=== PATIENT | female | born 1935 | race Caucasian/White ===

== ENCOUNTER → 2017-02-27 | Outpatient (CLI) | payer OTHER ==
[~2017-02-27] MED LIST: ADULT LOW DOSE81 M1 PO; ADVAIR; ADVAIR 250/501 DISK IH; ANORO ELLIPTA1 EACH IH; APLISOL5 TUB UNIT ID; ARICEPT10 MG PO; ASPIR 8181 M1 PO; ASPIRIN E.C.81 M1 PO; ATIVAN0.5 MG PO; ATIVAN2 MG PO; Aricept PO; Aspirin PO; Ativan PO; B-COMPLEX-VITA1 EACH PO; BACTRIM,SEPT1 TABLET PO; BACTROBAN OINTM22 GM TP; BONIVA150 MG PO; CALCARB 600 W-1 EACH PO; CALCIUM + D3 E1 EACH PO; CALCIUM 500 +1 EAC5 PO; CALCIUM CITRAT1 EA10 PO; CALCIUM CITRATE; CARBIDOPA; CARBIDOPA-LEVO1 EAC3 PO; CATAPRES0.3 MG PO; CEFTIN500 MG PO; CITRACAL PLUS1 EAC1 PO; CLEOCIN300 MG PO; CLINDAMYCIN HC300 MG PO; CLONIDINE HCL0.3 MG PO; COLACE100 MG PO; COUMADIN,JANTOVE1 MG PO; COUMADIN,JANTOVE4 MG PO; CRESTOR10 MG PO; CYMBALTA60 MG PO; Citracal PO; Cymbalta PO; DELTASONE1 MG PO; DITROPAN5 MG PO; DOCUSATE SODIU100 MG PO; DULCOLAX10 MG PR; ECOTRIN325 MG PO; ENDOCET 5-3251 EACH PO; ENEMA133 M2 PR; Ecotrin PO; FEOSOL325 MG PO; FEROSUL325 MG PO; FOSAMAX70 M1 PO; FOSAMAX70 MG PO; Feosol PO; Fosamax PO; GABAPENTIN300 MG PO; GABAPENTIN600 MG PO; HI B COMPLEX1 EACH PO; HIBICLENS118 ML TP; HYDROCODON-ACE1 EAC7 PO; HYDROXYCHLOROQ200 MG PO; IRON; IRON325 M1 PO; IRON325 MG PO; KEFLEX500 MG PO; LASIX40 MG PO; LEVODOPA; LEVOTHYROXINE25 MCG PO; LITE COAT ASPI325 M1 PO; LORAZEPAM0.5 MG PO; MEDROL DOSEPAK4 MG PO; MELATIN3 MG PO; METHOTREXATE; METHOTREXATE2.5 M2 PO; METHOTREXATE2.5 MG PO; MILK OF MAGN PO; MIRALAX17 GM PO; MULTIVITAMIN1 EAC2 PO; MYSOLINE50 MG PO; Micro-K,K-Tab,K-Dur, PO; NEURONTIN300 MG PO; ONDANSETRON ODT4 MG PO; OXAYDO5 MG PO; OXYBUTYNIN CHLOR5 M1 PO; OXYCODONE HCL5 MG PO; OYSTER SHELL 51 EACH PO; Oyst-Cal D, Oscal W/ PO; PLAQUENIL200 MG PO; PREDNISONE1 M1 PO; PREDNISONE1 MG PO; PRILOSEC20 MG PO; PRILOSEC40 MG PO; PRIMIDONE50 MG PO; PROAIR HFA8.5 GM IH; PriLOSEC PO; Proair HFA IH; Proventil,Ventolin H IH; SENNA PLUS TAB1 EACH PO; SINEMET 25-1001 EACH PO; SINEMET 25-11 TABLET PO; SPIRIVA1 INHALATI IH; SYMBICORT60 INHALAT IH; SYNTHROID25 MCG PO; Sinemet 25-100 PO; Symbicort 160-4.5 mc IH; TAB-A-VITE1 EACH PO; THERAGRAN1 TABLET PO; TRAMADOL HCL50 MG PO; TYLENOL325 M1 PO; Theragran-M,Centrum, PO; Tylenol Regular Stre PO; ULTRAM50 MG PO; VITAMIN B-122000 MC1 PO; VITAMIN D3; Vitamin B Complex PO; ZANTAC150 MG PO; Zantac PO; Zithromax PO; [UNRECOGNIZED DRUG - OTHER] PO; [UNRECOGNIZED DRUG - OTHER] PO; predniSONE PO
[2017-02-27 09:27] LABS: HEMATOCRIT 44.3 % (36.0-46.0); MCH 29.2 PG (29.0-34.0); MCHC 31.2 G/DL (30.0-36.0); MCV 93.9 FL (83-99); MEAN PLAT.VOLUME 9.8 uM^3 (9.5-12.4); PLATELET COUNT 189 K/uL (156-360); RBC DIS.WIDTH-CV 13.2 % (11.8-14.6); RBC DIS.WIDTH-SD 45.5 % (39-53); RED BLOOD COUNT 4.72 M/uL (3.80-5.20); WHITE BLOOD COUNT 6.5 K/uL (4.1-10.2)
== END | disposition home or self-care (01) ==
LOC: OPR 08:48 → EDSTATUS 10:00
PROVIDERS: Internal Medicine Pulmonary Disease
DX: C34.90 Malignant neoplasm of unspecified part of unspecified bronchus or lung (principal); J44.9 Chronic obstructive pulmonary disease, unspecified; R07.9 Chest pain, unspecified
CPT/HCPCS: 71010; 77012; 85027; 85610; 85730; 87070; 87075; 87205; 88305; 88341 TC; 88342 TC; J1170

== ENCOUNTER 2017-04-16 03:14 | Emergency (ER) | payer OTHER ==
[~2017-04-16 03:14] MED LIST changes: -IRON325 MG PO
[2017-04-16 03:25] LABS: EOSINOPHIL (%) 1.8 % (0-5); EOSINOPHIL COUNT 0.1 K/uL (0-0.3); HEMATOCRIT 37.2 % (36.0-46.0); IMMATURE GRANULOCYTE (%) 0.6 % (0.0-0.7); INSTRUMENT ABS NEUTROPHIL CT 4.8 K/uL; LYMPHOCYTE COUNT 1.2 K/uL (1.0-2.8); MCH 29.3 PG (29.0-34.0); MCHC 31.7 G/DL (30.0-36.0); MCV 92.3 FL (83-99); MEAN PLAT.VOLUME 9.2 uM^3 (9.5-12.4); MONOCYTE (%) 7.7 % (3-12); MONOCYTE COUNT 0.5 K/uL (0-0.8); NEUTROPHIL (%) 72.1 % (45-76); NEUTROPHIL COUNT 4.8 K/uL (1.8-6.4); PLATELET COUNT 161 K/uL (156-360); RBC DIS.WIDTH-CV 13.2 % (11.8-14.6); RBC DIS.WIDTH-SD 44.9 % (39-53); RED BLOOD COUNT 4.03 M/uL (3.80-5.20); WHITE BLOOD COUNT 6.7 K/uL (4.1-10.2)
[2017-04-16 03:35] LABS: AMYLASE 36 IU/L (1-118); CHLORIDE 103 mEq/L (99-109); POTASSIUM 4.1 mEq/L (3.7-5.4); SODIUM 138 mEq/L (136-147)
[2017-04-16 03:37] LABS: GLUCOSE 100 mg/dL (70-99)
[2017-04-16 03:38] LABS: ANION GAP 9 MEQ/L (2-14)
[2017-04-16 03:40] LABS: SERUM ETHYL ALCOHOL < 10 mg/dL
[2017-04-16 03:41] LABS: GFR ESTIMATE (CALCULATED) 57 mL/min/
[2017-04-16 03:42] LABS: UREA NITROGEN (BUN) 15 mg/dL (9-23)
[2017-04-16 03:44] LABS: LIPASE 12 U/L (1.0-51.0)
[2017-04-16] MEDS ORDERED: KEFLEX500 MG PO ×2 (05:06→09:44)
[2017-04-17] MEDS ORDERED: HYDROCODON-ACE1 EAC7 PO (15:56)
[2017-04-17] MEDS ORDERED: COLACE100 MG PO (15:56)
== END 2017-04-16 06:11 | disposition home or self-care (01) ==
LOC: TRA 03:14
PROVIDERS: Emergency Medicine
DX: S01.01XA Laceration without foreign body of scalp, initial encounter (principal); S41.111A Laceration without foreign body of right upper arm, initial encounter; S40.011A Contusion of right shoulder, initial encounter; S70.11XA Contusion of right thigh, initial encounter; W19.XXXA Unspecified fall, initial encounter; Y92.002 Bathroom of unspecified non-institutional (private) residence as the place of occurrence of the external cause; Z23 Encounter for immunization; Z79.82 Long term (current) use of aspirin; Z79.52 Long term (current) use of systemic steroids
CPT/HCPCS: 70450; 72125; 73552; 80048; 81003; 82150; 83690; 85025; 86900; 86901; G0480

== ENCOUNTER 2017-04-17 11:15 | Day surgery (SDC) | payer OTHER ==
[~2017-04-17] VITALS: Ht 170.2 cm; Wt 79.0 kg
[2017-04-17 12:10] LABS: EOSINOPHIL COUNT 0.1 K/uL (0-0.3); HEMATOCRIT 37.7 % (36.0-46.0); IMMATURE GRANULOCYTE (%) 0.4 % (0.0-0.7); INSTRUMENT ABS NEUTROPHIL CT 5.8 K/uL; LYMPHOCYTE COUNT 0.6 K/uL (1.0-2.8); MCH 28.7 PG (29.0-34.0); MCHC 30.8 G/DL (30.0-36.0); MCV 93.3 FL (83-99); MEAN PLAT.VOLUME 9.9 uM^3 (9.5-12.4); MONOCYTE (%) 6.6 % (3-12); MONOCYTE COUNT 0.5 K/uL (0-0.8); NEUTROPHIL (%) 82.7 % (45-76); NEUTROPHIL COUNT 5.8 K/uL (1.8-6.4); PLATELET COUNT 161 K/uL (156-360); RBC DIS.WIDTH-CV 13.5 % (11.8-14.6); RBC DIS.WIDTH-SD 46.5 % (39-53); RED BLOOD COUNT 4.04 M/uL (3.80-5.20)
[2017-04-17 12:16] LABS: INTER. NORMALIZED RATIO 1.1
[2017-04-17 12:29] VITALS: BP 149/65
[2017-04-17 12:37] LABS: ALKALINE PHOSPHATASE 51 IU/L (3-129); ANION GAP 8 MEQ/L (2-14); CHLORIDE 103 MEQ/L (99-109); GFR ESTIMATE (CALCULATED) 57 mL/min/; GLUCOSE 97 mg/dL (70-99); POTASSIUM 4.4 MEQ/L (3.7-5.4); SAMPLE HEMOLYSIS CHECK 0; SAMPLE ICTERIC CHECK 0; SAMPLE LIPEMIA CHECK 0; SODIUM 140 MEQ/L (136-147); TOTAL BILIRUBIN 0.5 MG/DL (0.0-1.0); UREA NITROGEN (BUN) 16 mg/dL (9-23)
[2017-04-17] MEDS ORDERED: HYDROCODON-ACE1 EAC7 PO (15:56)
[2017-04-17] MEDS ORDERED: COLACE100 MG PO (15:56)
[2017-04-17 18:00] VITALS: BP 187/79
[2017-04-17 18:39] VITALS: BP 181/74
== END 2017-04-17 18:50 | disposition home or self-care (01) ==
LOC: SDC 11:15
PROVIDERS: Thoracic Surgery (Cardiothoracic Vascular Surgery)
PROC: 07B74ZX Excision of Thorax Lymphatic, Percutaneous Endoscopic Approach, Diagnostic (ICD-10-PCS; principal; 2017-04-17)
DX: C34.12 Malignant neoplasm of upper lobe, left bronchus or lung (principal); J44.9 Chronic obstructive pulmonary disease, unspecified; I73.9 Peripheral vascular disease, unspecified; E03.9 Hypothyroidism, unspecified; I10 Essential (primary) hypertension; I49.5 Sick sinus syndrome; Z79.82 Long term (current) use of aspirin; Z87.891 Personal history of nicotine dependence; Z86.73 Personal history of transient ischemic attack (TIA), and cerebral infarction without residual deficits; Z88.0 Allergy status to penicillin
CPT/HCPCS: 80053; 85025; 85610; 86850; 86900; 86901; 88305; J0360; J0690; J2405; J2710; J3010

== ENCOUNTER 2017-04-30 22:13 | Inpatient (IN) | payer OTHER ==
[~2017-04-30] VITALS: Ht 172.7 cm; Wt 83.1 kg
[2017-05-01] MEDS ORDERED: MEMANTINE HCL5 MG PO (10:12)
[2017-05-01 10:50] VITALS: BP 178/70
[2017-05-01 11:28] LABS: METH RESISTANT S AUREUS PCR POSITIVE (NEGATIVE)
[2017-05-01 11:35] LABS: PROBE CHECK PASS
[2017-05-01 20:00] VITALS: BP 112/59
[2017-05-01 20:47] LABS: METH RESISTANT S AUREUS PCR POSITIVE (NEGATIVE)
[2017-05-01 20:53] LABS: PROBE CHECK PASS
[2017-05-02] VITALS (13 sets, daily range): BP systolic 98–170; BP diastolic 52–88
[2017-05-02 07:52] LABS: HEMATOCRIT 29.3 % (36.0-46.0); MCH 29.2 PG (29.0-34.0); MEAN PLAT.VOLUME 9.8 uM^3 (9.5-12.4); PLATELET COUNT 145 K/uL (156-360); RBC DIS.WIDTH-CV 14.2 % (11.8-14.6); WHITE BLOOD COUNT 10.6 K/uL (4.1-10.2)
[2017-05-02 07:54] LABS: MCV 97.3 FL (83-99); RED BLOOD COUNT 3.01 M/uL (3.80-5.20)
[2017-05-02 08:09] LABS: ANION GAP 10 MEQ/L (2-14); CHLORIDE 107 MEQ/L (99-109); GFR ESTIMATE (CALCULATED) > 59 mL/min/; GLUCOSE 119 mg/dL (70-99); POTASSIUM 5.4 MEQ/L (3.7-5.4); SAMPLE HEMOLYSIS CHECK 0; SAMPLE ICTERIC CHECK 0; SAMPLE LIPEMIA CHECK 0; SODIUM 136 MEQ/L (136-147); UREA NITROGEN (BUN) 19 mg/dL (9-23)
[2017-05-02 10:52] LABS: POINT-OF-CARE METER ID UU13113803
[2017-05-02 12:24] LABS: TROP-I INTERPRETATION NEGATIVE
[2017-05-02 12:27] LABS: CK-MB 7.3 ng/mL (0.0-4.9)
[2017-05-02 13:07] LABS: CREATINE KINASE 658 IU/L (1-294); TOTAL CK 658 IU/L (1-294)
[2017-05-02 18:46] LABS: CREATINE KINASE 737 IU/L (1-294); TOTAL CK 737 IU/L (1-294)
[2017-05-02 18:51] LABS: TROP-I INTERPRETATION NEGATIVE; TROPONIN-I 0.11 ng/mL (0.0-0.30)
[2017-05-02 19:04] LABS: CK-MB 8.1 ng/mL (0.0-4.9)
[2017-05-03] VITALS (19 sets, daily range): BP systolic 103–178; BP diastolic 44–95
[2017-05-03 01:30] LABS: CREATINE KINASE 920 IU/L (1-294); TOTAL CK 920 IU/L (1-294)
[2017-05-03 01:33] LABS: TROP-I INTERPRETATION NEGATIVE
[2017-05-03 01:36] LABS: CK-MB 4.9 ng/mL (0.0-4.9)
[2017-05-03 07:39] LABS: HEMATOCRIT 26.8 % (36.0-46.0); MCHC 31.3 G/DL (30.0-36.0); MCV 95.7 FL (83-99); MEAN PLAT.VOLUME 9.7 uM^3 (9.5-12.4); PLATELET COUNT 140 K/uL (156-360); RBC DIS.WIDTH-SD 48.6 % (39-53); WHITE BLOOD COUNT 11.8 K/uL (4.1-10.2)
[2017-05-03 08:15] LABS: ANION GAP 8 MEQ/L (2-14); CHLORIDE 106 MEQ/L (99-109); GFR ESTIMATE (CALCULATED) 46 mL/min/; GLUCOSE 111 mg/dL (70-99); POTASSIUM 5.2 MEQ/L (3.7-5.4); SAMPLE HEMOLYSIS CHECK 0; SAMPLE ICTERIC CHECK 0; SAMPLE LIPEMIA CHECK 0; SODIUM 136 MEQ/L (136-147)
[2017-05-03 08:23] LABS: UREA NITROGEN (BUN) 32 mg/dL (9-23)
[2017-05-04] VITALS (17 sets, daily range): BP systolic 127–199; BP diastolic 47–94
[2017-05-04 05:35] LABS: HEMATOCRIT 25.8 % (36.0-46.0); MCH 28.8 PG (29.0-34.0); MCHC 30.2 G/DL (30.0-36.0); MCV 95.2 FL (83-99); MEAN PLAT.VOLUME 9.9 uM^3 (9.5-12.4); NRBC (%) 0.2 /100 WBC (0-0); PLATELET COUNT 133 K/uL (156-360); RBC DIS.WIDTH-CV 14.2 % (11.8-14.6); RBC DIS.WIDTH-SD 48.5 % (39-53); RED BLOOD COUNT 2.71 M/uL (3.80-5.20); WHITE BLOOD COUNT 8.1 K/uL (4.1-10.2)
[2017-05-04 06:18] LABS: ANION GAP 8 MEQ/L (2-14); CHLORIDE 105 MEQ/L (99-109); GFR ESTIMATE (CALCULATED) > 59 mL/min/; GLUCOSE 106 mg/dL (70-99); POTASSIUM 4.2 MEQ/L (3.7-5.4); SAMPLE HEMOLYSIS CHECK 0; SAMPLE ICTERIC CHECK 0; SAMPLE LIPEMIA CHECK 0; SODIUM 136 MEQ/L (136-147); UREA NITROGEN (BUN) 26 mg/dL (9-23)
[2017-05-05] VITALS (17 sets, daily range): BP systolic 89–173; BP diastolic 50–73
[2017-05-05 08:18] LABS: HEMATOCRIT 23.2 % (36.0-46.0); MCH 30.2 PG (29.0-34.0); MCHC 31.5 G/DL (30.0-36.0); MCV 95.9 FL (83-99); MEAN PLAT.VOLUME 9.7 uM^3 (9.5-12.4); PLATELET COUNT 152 K/uL (156-360); RBC DIS.WIDTH-CV 14.4 % (11.8-14.6); RBC DIS.WIDTH-SD 50.1 % (39-53); RED BLOOD COUNT 2.42 M/uL (3.80-5.20)
[2017-05-05 09:02] LABS: ANION GAP 5 MEQ/L (2-14); CHLORIDE 105 MEQ/L (99-109); GFR ESTIMATE (CALCULATED) > 59 mL/min/; GLUCOSE 90 mg/dL (70-99); POTASSIUM 4.3 MEQ/L (3.7-5.4); SAMPLE HEMOLYSIS CHECK 0; SAMPLE ICTERIC CHECK 0; SAMPLE LIPEMIA CHECK 0; SODIUM 139 MEQ/L (136-147); UREA NITROGEN (BUN) 21 mg/dL (9-23)
[2017-05-06] VITALS (12 sets, daily range): BP systolic 128–203; BP diastolic 58–97
[2017-05-06 05:34] LABS: EOSINOPHIL COUNT 0.1 K/uL (0-0.3); HEMATOCRIT 29.1 % (36.0-46.0); IMMATURE GRANULOCYTE (%) 1.1 % (0.0-0.7); IMMATURE GRANULOCYTE COUNT 0.1 K/uL; INSTRUMENT ABS NEUTROPHIL CT 8.7 K/uL; LYMPHOCYTE COUNT 1.1 K/uL (1.0-2.8); MCH 28.9 PG (29.0-34.0); MCHC 30.9 G/DL (30.0-36.0); MCV 93.6 FL (83-99); MEAN PLAT.VOLUME 9.4 uM^3 (9.5-12.4); MONOCYTE (%) 7.5 % (3-12); MONOCYTE COUNT 0.8 K/uL (0-0.8); NEUTROPHIL (%) 80.1 % (45-76); NEUTROPHIL COUNT 8.7 K/uL (1.8-6.4); PLATELET COUNT 189 K/uL (156-360); RBC DIS.WIDTH-CV 15.1 % (11.8-14.6); WHITE BLOOD COUNT 10.9 K/uL (4.1-10.2)
[2017-05-06 05:41] LABS: RED BLOOD COUNT 3.11 M/uL (3.80-5.20)
[2017-05-06 06:23] LABS: ANION GAP 6 MEQ/L (2-14); CHLORIDE 104 MEQ/L (99-109); GFR ESTIMATE (CALCULATED) > 59 mL/min/; GLUCOSE 98 mg/dL (70-99); POTASSIUM 4.6 MEQ/L (3.7-5.4); SAMPLE HEMOLYSIS CHECK 0; SAMPLE ICTERIC CHECK 0; SAMPLE LIPEMIA CHECK 0; SODIUM 139 MEQ/L (136-147); UREA NITROGEN (BUN) 28 mg/dL (9-23)
[2017-05-06 13:00] LABS: BASE EXCESS 4.4 mEq/L (-3 to +3); BICARBONATE 28.4 mEq/L (22-26); CARBOXY HGB 2.6 % (0-5); METHEMOGLOBIN 1.6 % (0-1.5); PO2 49 mm Hg (80-100); pH 7.47 (7.35-7.45)
[2017-05-06 13:01] LABS: COMMENTS - BLOOD GASES A+C+; DEVICE NC; O2 FLOW 2 L/MIN; PCO2 39 mm Hg (35-45); SITE RR; TOTAL RESP RATE 22 resp/min
[2017-05-06 15:31] LABS: TROP-I INTERPRETATION NEGATIVE; TROPONIN-I 0.03 ng/mL (0.0-0.30)
[2017-05-07] VITALS: BP 163/69
[2017-05-07 04:00] VITALS: BP 146/60
[2017-05-07 05:46] LABS: HEMATOCRIT 30.4 % (36.0-46.0); MCHC 31.6 G/DL (30.0-36.0); MCV 91.8 FL (83-99); MEAN PLAT.VOLUME 9.9 uM^3 (9.5-12.4); PLATELET COUNT 183 K/uL (156-360); RBC DIS.WIDTH-CV 14.7 % (11.8-14.6); RBC DIS.WIDTH-SD 49.3 % (39-53); RED BLOOD COUNT 3.31 M/uL (3.80-5.20); WHITE BLOOD COUNT 15.1 K/uL (4.1-10.2)
[2017-05-07 06:00] LABS: INTER. NORMALIZED RATIO 1.1; PROTHROMBIN TIME 11.9 SEC (10.2-12.9)
[2017-05-07 06:02] LABS: PTT 64.9 SEC (25-37)
[2017-05-07 06:36] LABS: ANION GAP 10 MEQ/L (2-14); CHLORIDE 101 MEQ/L (99-109); GFR ESTIMATE (CALCULATED) 57 mL/min/; GLUCOSE 134 mg/dL (70-99); POTASSIUM 5.1 MEQ/L (3.7-5.4); SAMPLE HEMOLYSIS CHECK 0; SAMPLE ICTERIC CHECK 0; SAMPLE LIPEMIA CHECK 0; SODIUM 135 MEQ/L (136-147); UREA NITROGEN (BUN) 37 mg/dL (9-23)
[2017-05-07 08:00] VITALS: BP 186/103
[2017-05-07 12:00] VITALS: BP 166/62
[2017-05-07 12:30] LABS: INTER. NORMALIZED RATIO 1.1; PROTHROMBIN TIME 11.8 SEC (10.2-12.9)
[2017-05-07 12:33] LABS: PTT 40.3 SEC (25-37)
[2017-05-07 17:00] VITALS: BP 174/87
[2017-05-07 20:00] VITALS: BP 158/67
[2017-05-08] VITALS (12 sets, daily range): BP systolic 0–214; BP diastolic 0–102
[2017-05-08 00:03] LABS: INTER. NORMALIZED RATIO 1.1; PROTHROMBIN TIME 11.6 SEC (10.2-12.9)
[2017-05-08 00:06] LABS: PTT 65.1 SEC (25-37)
[2017-05-08 06:43] LABS: INTER. NORMALIZED RATIO 1.1; PROTHROMBIN TIME 11.6 SEC (10.2-12.9)
[2017-05-08 06:46] LABS: PTT 54.4 SEC (25-37)
[2017-05-09] VITALS (14 sets, daily range): BP systolic 136–196; BP diastolic 59–86
[2017-05-10] VITALS (8 sets, daily range): BP systolic 138–191; BP diastolic 61–109
[2017-05-11] VITALS: BP 147/74
[2017-05-11 04:00] VITALS: BP 155/68
[2017-05-11 08:00] VITALS: BP 175/82
[2017-05-11 12:00] VITALS: BP 162/83
[2017-05-11 16:00] VITALS: BP 145/61
[2017-05-11 20:00] VITALS: BP 176/87
[2017-05-11 22:27] LABS: TROP-I INTERPRETATION POSITIVE; TROPONIN-I 1.12 ng/mL (0.0-0.30)
[2017-05-12] VITALS (10 sets, daily range): BP systolic 136–202; BP diastolic 54–123
[2017-05-12 05:39] LABS: EOSINOPHIL (%) 0.1 % (0-5); HEMATOCRIT 28.5 % (36.0-46.0); IMMATURE GRANULOCYTE (%) 2.5 % (0.0-0.7); IMMATURE GRANULOCYTE COUNT 0.4 K/uL; INSTRUMENT ABS NEUTROPHIL CT 14.3 K/uL; LYMPHOCYTE COUNT 0.5 K/uL (1.0-2.8); MCH 29.5 PG (29.0-34.0); MCHC 31.6 G/DL (30.0-36.0); MCV 93.4 FL (83-99); MEAN PLAT.VOLUME 10.8 uM^3 (9.5-12.4); MONOCYTE (%) 3.3 % (3-12); MONOCYTE COUNT 0.5 K/uL (0-0.8); NEUTROPHIL (%) 90.8 % (45-76); NEUTROPHIL COUNT 14.3 K/uL (1.8-6.4); PLATELET COUNT 171 K/uL (156-360); RBC DIS.WIDTH-CV 14.5 % (11.8-14.6); RBC DIS.WIDTH-SD 49.1 % (39-53); RED BLOOD COUNT 3.05 M/uL (3.80-5.20); WHITE BLOOD COUNT 15.7 K/uL (4.1-10.2)
[2017-05-12 06:12] LABS: TROP-I INTERPRETATION NEGATIVE; TROPONIN-I 0.01 ng/mL (0.0-0.30)
[2017-05-12 12:09] LABS: TROP-I INTERPRETATION NEGATIVE; TROPONIN-I 0.01 ng/mL (0.0-0.30)
[2017-05-13] VITALS (7 sets, daily range): BP systolic 128–168; BP diastolic 67–78
[2017-05-13 05:16] LABS: HEMATOCRIT 29.9 % (36.0-46.0); MCH 27.9 PG (29.0-34.0); MCHC 30.4 G/DL (30.0-36.0); MCV 91.7 FL (83-99); MEAN PLAT.VOLUME 10.2 uM^3 (9.5-12.4); PLATELET COUNT 203 K/uL (156-360); RBC DIS.WIDTH-CV 14.1 % (11.8-14.6); RBC DIS.WIDTH-SD 47.8 % (39-53); RED BLOOD COUNT 3.26 M/uL (3.80-5.20); WHITE BLOOD COUNT 16.6 K/uL (4.1-10.2)
[2017-05-13 05:38] LABS: ANION GAP 10 MEQ/L (2-14); CHLORIDE 103 MEQ/L (99-109); GFR ESTIMATE (CALCULATED) > 59 mL/min/; GLUCOSE 114 mg/dL (70-99); POTASSIUM 5.2 MEQ/L (3.7-5.4); SAMPLE HEMOLYSIS CHECK 0; SAMPLE ICTERIC CHECK 0; SAMPLE LIPEMIA CHECK 0; SODIUM 139 MEQ/L (136-147); UREA NITROGEN (BUN) 29 mg/dL (9-23)
[2017-05-14 05:38] VITALS: BP 165/78
[2017-05-14 09:17] VITALS: BP 169/70
[2017-05-14 12:15] VITALS: BP 152/66
[2017-05-14 15:00] VITALS: BP 132/63
[2017-05-14 16:59] LABS: TROP-I INTERPRETATION NEGATIVE; TROPONIN-I 0.02 ng/mL (0.0-0.30)
[2017-05-14 19:45] VITALS: BP 143/65
[2017-05-14 23:50] VITALS: BP 141/65
[2017-05-15 03:45] VITALS: BP 142/67
[2017-05-15 05:49] LABS: TROP-I INTERPRETATION NEGATIVE; TROPONIN-I 0.02 ng/mL (0.0-0.30)
[2017-05-15 07:32] VITALS: BP 135/63
[2017-05-15 12:00] VITALS: BP 134/61
[2017-05-15 17:01] VITALS: BP 133/61
[2017-05-15 20:03] VITALS: BP 152/64
[2017-05-15 23:40] VITALS: BP 146/70
[2017-05-16] VITALS (20 sets, daily range): BP systolic 76–162; BP diastolic 31–90
[2017-05-16 09:37] LABS: HEMATOCRIT 25.8 % (36.0-46.0); MCH 28.6 PG (29.0-34.0); MCHC 29.8 G/DL (30.0-36.0); NRBC (%) 0.1 /100 WBC (0-0); RBC DIS.WIDTH-CV 14.7 % (11.8-14.6); RBC DIS.WIDTH-SD 51.8 % (39-53); RED BLOOD COUNT 2.69 M/uL (3.80-5.20)
[2017-05-16 09:44] LABS: MCV 95.9 FL (83-99); PLATELET COUNT 275 K/uL (156-360); WHITE BLOOD COUNT 31.5 K/uL (4.1-10.2)
[2017-05-16 10:24] LABS: BASE EXCESS 8.1 mEq/L (-3 to +3); CARBOXY HGB 3.1 % (0-5); COMMENTS - BLOOD GASES A+C+; DEVICE NC; METHEMOGLOBIN 1.7 % (0-1.5); O2 FLOW 4 L/MIN; PCO2 41 mm Hg (35-45); PO2 55 mm Hg (80-100); SITE RR
[2017-05-16 10:38] LABS: INTER. NORMALIZED RATIO 1.9
[2017-05-16 10:39] LABS: PROTHROMBIN TIME 20.9 SEC (10.2-12.9)
[2017-05-16 10:56] LABS: ANION GAP 6 MEQ/L (2-14); CHLORIDE 107 MEQ/L (99-109); GFR ESTIMATE (CALCULATED) 57 mL/min/; GLUCOSE 105 mg/dL (70-99); MAGNESIUM 3.3 mg/dl (1.3-2.7); POTASSIUM 4.8 MEQ/L (3.7-5.4); SAMPLE HEMOLYSIS CHECK 0; SAMPLE ICTERIC CHECK 0; SAMPLE LIPEMIA CHECK 0; SODIUM 140 MEQ/L (136-147); UREA NITROGEN (BUN) 43 mg/dL (9-23)
[2017-05-16 10:59] LABS: TROP-I INTERPRETATION NEGATIVE; TROPONIN-I 0.02 ng/mL (0.0-0.30)
[2017-05-16 11:16] LABS: CREATINE KINASE 19 IU/L (1-294); TOTAL CK 19 IU/L (1-294)
[2017-05-16 11:21] LABS: TROP-I INTERPRETATION NEGATIVE; TROPONIN-I 0.03 ng/mL (0.0-0.30)
[2017-05-16 11:22] LABS: CK-MB 1.1 ng/mL (0.0-4.9)
[2017-05-17] VITALS (9 sets, daily range): BP systolic 112–158; BP diastolic 49–73
[2017-05-17 06:01] LABS: HEMATOCRIT 26.8 % (36.0-46.0); MCH 30.4 PG (29.0-34.0); MCHC 33.2 G/DL (30.0-36.0); MEAN PLAT.VOLUME 10.2 uM^3 (9.5-12.4); NRBC (%) 0.3 /100 WBC (0-0); PLATELET COUNT 208 K/uL (156-360); RBC DIS.WIDTH-CV 16.2 % (11.8-14.6); RBC DIS.WIDTH-SD 53.4 % (39-53); RED BLOOD COUNT 2.93 M/uL (3.80-5.20); WHITE BLOOD COUNT 20.6 K/uL (4.1-10.2)
[2017-05-17 06:07] LABS: MCV 91.5 FL (83-99)
[2017-05-17 06:12] LABS: ANION GAP 7 MEQ/L (2-14); CHLORIDE 105 MEQ/L (99-109); GFR ESTIMATE (CALCULATED) 57 mL/min/; GLUCOSE 103 mg/dL (70-99); POTASSIUM 4.7 MEQ/L (3.7-5.4); SAMPLE HEMOLYSIS CHECK 0; SAMPLE ICTERIC CHECK 0; SAMPLE LIPEMIA CHECK 0; SODIUM 140 MEQ/L (136-147); UREA NITROGEN (BUN) 46 mg/dL (9-23)
[2017-05-18] VITALS (12 sets, daily range): BP systolic 114–161; BP diastolic 54–66
[2017-05-18 04:46] LABS: EOSINOPHIL (%) 0.2 % (0-5); HEMATOCRIT 22.5 % (36.0-46.0); IMMATURE GRANULOCYTE (%) 4.6 % (0.0-0.7); IMMATURE GRANULOCYTE COUNT 0.8 K/uL; INSTRUMENT ABS NEUTROPHIL CT 13.9 K/uL; MCH 28.5 PG (29.0-34.0); MCHC 31.6 G/DL (30.0-36.0); MCV 90.4 FL (83-99); MEAN PLAT.VOLUME 9.9 uM^3 (9.5-12.4); MONOCYTE COUNT 0.7 K/uL (0-0.8); NEUTROPHIL (%) 84.9 % (45-76); NEUTROPHIL COUNT 13.9 K/uL (1.8-6.4); NRBC (%) 0.2 /100 WBC (0-0); PLATELET COUNT 190 K/uL (156-360); RBC DIS.WIDTH-CV 15.3 % (11.8-14.6); RBC DIS.WIDTH-SD 49.9 % (39-53); RED BLOOD COUNT 2.49 M/uL (3.80-5.20); WHITE BLOOD COUNT 16.4 K/uL (4.1-10.2)
[2017-05-18 04:59] LABS: CHLORIDE 105 mEq/L (99-109); POTASSIUM 4.5 mEq/L (3.7-5.4); SODIUM 141 mEq/L (136-147)
[2017-05-18 05:00] LABS: GLUCOSE 101 mg/dL (70-99)
[2017-05-18 05:02] LABS: ANION GAP 6 MEQ/L (2-14)
[2017-05-18 05:04] LABS: GFR ESTIMATE (CALCULATED) > 59 mL/min/
[2017-05-18 05:05] LABS: UREA NITROGEN (BUN) 38 mg/dL (9-23)
[2017-05-19] VITALS (7 sets, daily range): BP systolic 127–179; BP diastolic 52–78
[2017-05-19 05:52] LABS: EOSINOPHIL (%) 0.5 % (0-5); EOSINOPHIL COUNT 0.1 K/uL (0-0.3); HEMATOCRIT 25.4 % (36.0-46.0); IMMATURE GRANULOCYTE (%) 4.1 % (0.0-0.7); IMMATURE GRANULOCYTE COUNT 0.6 K/uL; INSTRUMENT ABS NEUTROPHIL CT 12.2 K/uL; LYMPHOCYTE COUNT 0.9 K/uL (1.0-2.8); MCH 29.5 PG (29.0-34.0); MCHC 31.5 G/DL (30.0-36.0); MCV 93.7 FL (83-99); MEAN PLAT.VOLUME 9.7 uM^3 (9.5-12.4); MONOCYTE (%) 4.1 % (3-12); MONOCYTE COUNT 0.6 K/uL (0-0.8); NEUTROPHIL (%) 85.2 % (45-76); NEUTROPHIL COUNT 12.2 K/uL (1.8-6.4); NRBC (%) 0.1 /100 WBC (0-0); PLATELET COUNT 173 K/uL (156-360); RBC DIS.WIDTH-CV 15.1 % (11.8-14.6); RBC DIS.WIDTH-SD 49.9 % (39-53); RED BLOOD COUNT 2.71 M/uL (3.80-5.20); WHITE BLOOD COUNT 14.3 K/uL (4.1-10.2)
[2017-05-20] VITALS (7 sets, daily range): BP systolic 122–169; BP diastolic 56–74
[2017-05-20 07:31] LABS: GFR ESTIMATE (CALCULATED) > 59 mL/min/
[2017-05-20 15:58] LABS: C DIFF TOXIN NEGATIVE (NEGATIVE)
[2017-05-20 16:01] LABS: PROBE CHECK PASS; SPECIMEN PROCESSING CONTROL PASS
[2017-05-21 04:04] VITALS: BP 134/64
[2017-05-21 07:58] VITALS: BP 131/63
[2017-05-21 11:45] VITALS: BP 143/64
[2017-05-21 15:14] VITALS: BP 138/68
[2017-05-21 19:37] VITALS: BP 166/71
[2017-05-21 23:43] VITALS: BP 174/74
[2017-05-22 00:24] VITALS: BP 156/78
[2017-05-22 03:28] VITALS: BP 168/73
[2017-05-22 07:45] VITALS: BP 139/64
[2017-05-22 10:59] VITALS: BP 136/63
[2017-05-22 14:52] LABS: ANION GAP 7 MEQ/L (2-14); CHLORIDE 109 MEQ/L (99-109); GFR ESTIMATE (CALCULATED) > 59 mL/min/; GLUCOSE 125 mg/dL (70-99); POTASSIUM 4.3 MEQ/L (3.7-5.4); SAMPLE HEMOLYSIS CHECK 0; SAMPLE ICTERIC CHECK 0; SAMPLE LIPEMIA CHECK 0; SODIUM 139 MEQ/L (136-147); UREA NITROGEN (BUN) 26 mg/dL (9-23)
[2017-05-22] MEDS ORDERED: BACTRIM,SEPT1 TABLET PO (15:15)
[2017-05-22] MEDS ORDERED: DIGOXIN125 MCG PO (15:15)
[2017-05-22] MEDS ORDERED: LOPRESSOR25 MG PO (15:15)
[2017-05-22] MEDS ORDERED: MUCINEX600 MG PO (15:15)
[2017-05-22 15:55] VITALS: BP 130/60
[2017-05-22 16:41] LABS: EOSINOPHIL COUNT 0.1 K/uL (0-0.3); HEMATOCRIT 30.3 % (36.0-46.0); HEMATOLOGY COMMENT 1 SN; IMMATURE GRANULOCYTE (%) 1.2 % (0.0-0.7); IMMATURE GRANULOCYTE COUNT 0.1 K/uL; INSTRUMENT ABS NEUTROPHIL CT 10.5 K/uL; LYMPHOCYTE COUNT 0.4 K/uL (1.0-2.8); MCH 29.2 PG (29.0-34.0); MCHC 30.4 G/DL (30.0-36.0); MCV 96.2 FL (83-99); MEAN PLAT.VOLUME 9.8 uM^3 (9.5-12.4); MONOCYTE (%) 4.7 % (3-12); MONOCYTE COUNT 0.6 K/uL (0-0.8); NEUTROPHIL (%) 89.2 % (45-76); NEUTROPHIL COUNT 10.5 K/uL (1.8-6.4); NRBC (%) 0.2 /100 WBC (0-0); PLAT.SUFFICIENCY DECREASED; RBC DIS.WIDTH-CV 16.6 % (11.8-14.6); RBC DIS.WIDTH-SD 55.6 % (39-53); RED BLOOD COUNT 3.15 M/uL (3.80-5.20); WHITE BLOOD COUNT 11.8 K/uL (4.1-10.2)
[2017-05-22 16:42] LABS: PLATELET COUNT 117 K/uL (156-360)
[2017-05-22 20:56] VITALS: BP 144/65
== END 2017-05-22 19:52 | DRG 163 ==
LOC: ENRESERV 22:13 → CANRESERV 22:13 → 3EAST 05-01 09:51 → 2SOUTH 05-01 09:51 → 4WEST 05-01 09:51 → 2SOUTH 05-01 11:04 → ENRESERV 05-01 17:31 → 4WEST 05-01 19:24 → ENRESERV 05-13 08:36 → 4EAST 05-13 11:02 → 4WEST 05-16 09:41 → ENRESERV 05-17 19:05 → 4EAST 05-17 20:54 → ENRESERV 05-19 18:06 → 3EAST 05-19 19:54
PROVIDERS: Internal Medicine Cardiovascular Disease; Internal Medicine Pulmonary Disease; Nurse Practitioner Family; Physical Medicine & Rehabilitation; Physician Assistant; Student in an Organized Health Care Education/Training Program; Surgery; Thoracic Surgery (Cardiothoracic Vascular Surgery)
DX: C34.12 Malignant neoplasm of upper lobe, left bronchus or lung (principal); C78.2 Secondary malignant neoplasm of pleura; J94.8 Other specified pleural conditions; A41.51 Sepsis due to Escherichia coli [E. coli]; R65.21 Severe sepsis with septic shock; N39.0 Urinary tract infection, site not specified; B96.20 Unspecified Escherichia coli [E. coli] as the cause of diseases classified elsewhere; B95.2 Enterococcus as the cause of diseases classified elsewhere; B96.89 Other specified bacterial agents as the cause of diseases classified elsewhere; J44.1 Chronic obstructive pulmonary disease with (acute) exacerbation; J98.11 Atelectasis; I82.C12 Acute embolism and thrombosis of left internal jugular vein; R07.89 Other chest pain; I49.5 Sick sinus syndrome; I35.2 Nonrheumatic aortic (valve) stenosis with insufficiency; R41.82 Altered mental status, unspecified; D64.9 Anemia, unspecified; G20 Parkinson's disease; I10 Essential (primary) hypertension; E78.5 Hyperlipidemia, unspecified; G62.9 Polyneuropathy, unspecified; F03.90 Unspecified dementia, unspecified severity, without behavioral disturbance, psychotic disturbance, mood disturbance, and anxiety; G25.81 Restless legs syndrome; M06.9 Rheumatoid arthritis, unspecified; K21.9 Gastro-esophageal reflux disease without esophagitis; E07.9 Disorder of thyroid, unspecified; M19.90 Unspecified osteoarthritis, unspecified site; Z87.891 Personal history of nicotine dependence; Z80.0 Family history of malignant neoplasm of digestive organs; Z80.41 Family history of malignant neoplasm of ovary; Z82.49 Family history of ischemic heart disease and other diseases of the circulatory system; Z83.3 Family history of diabetes mellitus; Z85.3 Personal history of malignant neoplasm of breast; Z86.73 Personal history of transient ischemic attack (TIA), and cerebral infarction without residual deficits; Z90.11 Acquired absence of right breast and nipple; Z90.710 Acquired absence of both cervix and uterus; Z96.659 Presence of unspecified artificial knee joint
CPT/HCPCS: 36600; 71010; 71020; 71275; 80048; 80202; 81003; 82550; 82550 91; 82553; 82565; 82803; 82948; 83605; 83735; 84484; 85014; 85018; 85025; 85027; 85610; 85730; 86850; 86900; 86901; 86920; 87040; 87077; 87086; 87186; 87493; 87641; 87801; 88304; 88305; 88309; 88313; 90686; 93005; 93971; 94010; 94640; 94640 76; 94667; 94668; 94799; 97530 GO; 97530 GP; 99202; C1753; J0330; J0360; J0690; J0692; J0696; J1100; J1160; J1170; J1644; J1885; J1940; J2250; J2270; J2310; J2405; J2710; J2920; J3010; J3370; J3420; J7040; J7050; J7120; J7512; P9016; S0020

== ENCOUNTER 2017-07-13 20:38 | Inpatient (IN) | payer OTHER ==
[~2017-07-13] VITALS: Ht 162.6 cm; Wt 72.0 kg
[~2017-07-13 20:38] MED LIST changes: +ASPIR-LOW81 MG PO; -CALCIUM + D3 E1 EACH PO; +DIGOX125 MCG PO; +DIGOXIN125 MCG PO; +HYOSCYAMINE0.125 M2 SL; +LISINOPRIL5 MG PO; +LOPRESSOR25 MG PO; +MEMANTINE HCL5 MG PO; +METOPROLOL TART25 MG PO; +MORPHINE CON20 MG/M1 PO; +MUCINEX600 MG PO; +NAMZARIC 14 MG1 EACH PO; +OMEPRAZOLE40 M1 PO; +PERCOCET 5/31 TABLET PO; +SERTRALINE HCL25 MG PO; +SPIRIVA18 MCG IH; +SSD25GM TP; +TUMS500 MG PO; +TYLENOL REGULA325 MG PO; +XARELTO15 MG PO
[2017-07-13 21:26] LABS: EOSINOPHIL COUNT 0.1 K/uL (0-0.3); HEMATOCRIT 41.8 % (36.0-46.0); IMMATURE GRANULOCYTE (%) 0.6 % (0.0-0.7); IMMATURE GRANULOCYTE COUNT 0.1 K/uL; INSTRUMENT ABS NEUTROPHIL CT 8.8 K/uL; LYMPHOCYTE COUNT 1.2 K/uL (1.0-2.8); MCH 26.3 PG (29.0-34.0); MCHC 28.5 G/DL (30.0-36.0); MONOCYTE (%) 6.8 % (3-12); MONOCYTE COUNT 0.7 K/uL (0-0.8); NEUTROPHIL (%) 80.4 % (45-76); NEUTROPHIL COUNT 8.8 K/uL (1.8-6.4); RBC DIS.WIDTH-CV 15.7 % (11.8-14.6); RED BLOOD COUNT 4.52 M/uL (3.80-5.20); WHITE BLOOD COUNT 10.9 K/uL (4.1-10.2)
[2017-07-13 21:30] LABS: CHLORIDE 120 mEq/L (99-109); POTASSIUM 3.4 mEq/L (3.7-5.4); SODIUM 158 mEq/L (136-147)
[2017-07-13 21:31] LABS: BICARBONATE 36.3 mEq/L (22-26); CARBOXY HGB 2.5 % (0-5); METHEMOGLOBIN 0.8 % (0-1.5); PCO2 56 mm Hg (35-45); PO2 60 mm Hg (80-100); pH 7.42 (7.35-7.45)
[2017-07-13 21:32] LABS: COMMENTS - BLOOD GASES C+; DEVICE NC; O2 FLOW 3 L/MIN; SITE RB; TOTAL RESP RATE 18 resp/min
[2017-07-13 21:32] LABS: GLUCOSE 111 mg/dL (70-99)
[2017-07-13 21:33] LABS: ANION GAP 9 MEQ/L (2-14)
[2017-07-13 21:34] LABS: TOTAL BILIRUBIN 0.5 mg/dL (0.0-1.0)
[2017-07-13 21:36] LABS: ALKALINE PHOSPHATASE 71 IU/L (3-129); GFR ESTIMATE (CALCULATED) > 59 mL/min/; MCV 92.5 FL (83-99)
[2017-07-13 21:37] LABS: UREA NITROGEN (BUN) 43 mg/dL (9-23)
[2017-07-13 21:42] LABS: TROP-I INTERPRETATION POSITIVE
[2017-07-13 21:44] LABS: TROPONIN-I 1.61 ng/mL (0.0-0.30)
[2017-07-13 22:00] LABS: ADD MIUA? YES; BILIRUBIN MODERATE; BLOOD LARGE; COLOR AMBER ((YELLOW)); GLUCOSE (STRIP) NEGATIVE; KETONES NEGATIVE; LEUKOCYTES MODERATE; NITRITE NEGATIVE; PROTEIN (STRIP) 100; RED BLOOD CELLS TNTC /HPF (0-5); SPECIFIC GRAVITY 1.033 (1.000-1.030); UROBILINOGEN 0.2 MG/DL (0.2-1.0)
[2017-07-13 22:02] LABS: BACTERIA 2+ /HPF; EPITHELIAL CELLS RARE /HPF; MUCUS RARE /LPF; OTHER YEAST W/HYPHAE; UCUL ADDED? YES; WHITE BLOOD CELLS TNTC /HPF (0-5)
[2017-07-13 22:04] LABS: ICTOTEST NEGATIVE
[2017-07-13 22:07] LABS: MEAN PLAT.VOLUME 11.5 uM^3 (9.5-12.4); PLAT.SUFFICIENCY DECREASED
[2017-07-13 22:08] LABS: PLATELET COUNT 146 K/uL (156-360)
[2017-07-13 23:14] LABS: INTER. NORMALIZED RATIO 1.3; PROTHROMBIN TIME 14.9 SEC (10.2-12.9)
[2017-07-13 23:17] LABS: PTT 42.7 SEC (25-37)
[2017-07-14 01:28] VITALS: BP 184/79
[2017-07-14 05:00] VITALS: BP 165/72
[2017-07-14 05:22] LABS: CREATINE KINASE 53 IU/L (1-294); TOTAL CK 53 IU/L (1-294)
[2017-07-14 05:26] LABS: TROP-I INTERPRETATION POSITIVE; TROPONIN-I 1.25 ng/mL (0.0-0.30)
[2017-07-14 05:40] LABS: CK-MB 2.3 ng/mL (0.0-4.9)
[2017-07-14 05:41] LABS: METH RESISTANT S AUREUS PCR NEGATIVE (NEGATIVE)
[2017-07-14 05:42] LABS: DIGOXIN < 0.3 ng/mL (0.8-2.0)
[2017-07-14 05:51] LABS: PROBE CHECK PASS; SPECIMEN PROCESSING CONTROL PASS
[2017-07-14 08:19] VITALS: BP 140/63
[2017-07-14 08:37] LABS: BASOPHIL COUNT 0.1 K/uL (0-0.1); EOSINOPHIL (%) 1.3 % (0-5); EOSINOPHIL COUNT 0.2 K/uL (0-0.3); HEMATOCRIT 41.1 % (36.0-46.0); IMMATURE GRANULOCYTE (%) 0.3 % (0.0-0.7); INSTRUMENT ABS NEUTROPHIL CT 9.8 K/uL; LYMPHOCYTE COUNT 1.1 K/uL (1.0-2.8); MCH 26.3 PG (29.0-34.0); MCHC 28.2 G/DL (30.0-36.0); MCV 93.2 FL (83-99); MEAN PLAT.VOLUME 12.7 uM^3 (9.5-12.4); MONOCYTE (%) 7.2 % (3-12); MONOCYTE COUNT 0.9 K/uL (0-0.8); NEUTROPHIL (%) 81.3 % (45-76); NEUTROPHIL COUNT 9.8 K/uL (1.8-6.4); PLATELET COUNT 152 K/uL (156-360); RBC DIS.WIDTH-CV 15.9 % (11.8-14.6); RBC DIS.WIDTH-SD 54.1 % (39-53); RED BLOOD COUNT 4.41 M/uL (3.80-5.20)
[2017-07-14 12:06] VITALS: BP 144/60
== END 2017-07-14 16:39 | disposition hospice, home (50) | DRG 180 ==
LOC: EME → EDBD 20:38 → EME 20:38 → EDOF 23:22 → 4EAST 23:22 → ENRESERV 23:27 → 4EAST 07-14 00:49
PROVIDERS: Emergency Medicine; Family Medicine; Internal Medicine Medical Oncology
DX: C34.12 Malignant neoplasm of upper lobe, left bronchus or lung (principal); G93.40 Encephalopathy, unspecified; E87.0 Hyperosmolality and hypernatremia; N39.0 Urinary tract infection, site not specified; F02.81 Dementia in other diseases classified elsewhere, unspecified severity, with behavioral disturbance; F33.9 Major depressive disorder, recurrent, unspecified; D73.4 Cyst of spleen; E78.5 Hyperlipidemia, unspecified; Z66 Do not resuscitate; Z51.5 Encounter for palliative care; E03.9 Hypothyroidism, unspecified; F41.9 Anxiety disorder, unspecified; I11.0 Hypertensive heart disease with heart failure; I50.9 Heart failure, unspecified; I87.8 Other specified disorders of veins; I25.9 Chronic ischemic heart disease, unspecified; I35.0 Nonrheumatic aortic (valve) stenosis; R09.02 Hypoxemia; M79.7 Fibromyalgia; J44.9 Chronic obstructive pulmonary disease, unspecified; I48.2 Chronic atrial fibrillation; E86.1 Hypovolemia; I65.29 Occlusion and stenosis of unspecified carotid artery; E86.0 Dehydration; I44.4 Left anterior fascicular block; R63.0 Anorexia; I27.20 Pulmonary hypertension, unspecified; G20 Parkinson's disease; R15.9 Full incontinence of feces; R32 Unspecified urinary incontinence; Z90.2 Acquired absence of lung [part of]; Z86.14 Personal history of Methicillin resistant Staphylococcus aureus infection; Z79.01 Long term (current) use of anticoagulants; Z86.718 Personal history of other venous thrombosis and embolism; Z87.891 Personal history of nicotine dependence; Z90.11 Acquired absence of right breast and nipple; Z88.0 Allergy status to penicillin; Z88.5 Allergy status to narcotic agent; Z88.1 Allergy status to other antibiotic agents; Z99.81 Dependence on supplemental oxygen; Z79.51 Long term (current) use of inhaled steroids; Z79.82 Long term (current) use of aspirin; Z74.01 Bed confinement status; Z91.81 History of falling
CPT/HCPCS: 36600; 70450; 71010; 71260; 74177; 80053; 80162; 81003; 82550; 82550 91; 82553; 82803; 83605; 83880; 84484; 85025; 85027; 85610; 85730; 87040; 87086; 87641; 93005; 93306; 94799; 99281; 99285; J0360; J0692; J1940; J3370; J7030; J7050